=== PATIENT | female | born 1955 | race Caucasian/White ===

== ENCOUNTER 2016-04-05 09:45 | Outpatient (CLI) | payer BC, OTHER | END 2016-04-05 09:46 | disposition home or self-care (01) | LOC: NC 09:45 | PROVIDERS: ATTEND Family Medicine | DX: E11.9 Type 2 diabetes mellitus without complications (principal); Z71.3 Dietary counseling and surveillance; E66.9 Obesity, unspecified; Z68.31 Body mass index [BMI] 31.0-31.9, adult; Z79.84 Long term (current) use of oral hypoglycemic drugs ==

== ENCOUNTER 2016-06-15 08:53 | Outpatient (CLI) | payer BC, OTHER | END 2016-06-15 08:54 | disposition home or self-care (01) | LOC: NC 08:53 | PROVIDERS: ATTEND Family Medicine | DX: E11.9 Type 2 diabetes mellitus without complications (principal); Z71.3 Dietary counseling and surveillance; Z68.31 Body mass index [BMI] 31.0-31.9, adult; I10 Essential (primary) hypertension; Z79.84 Long term (current) use of oral hypoglycemic drugs ==

== ENCOUNTER 2016-06-22 09:08 | Outpatient (CLI) | payer BC, OTHER | END 2016-06-22 09:09 | disposition home or self-care (01) | LOC: NC 09:08 | PROVIDERS: ATTEND Family Medicine | DX: E11.9 Type 2 diabetes mellitus without complications (principal); Z71.3 Dietary counseling and surveillance; Z68.31 Body mass index [BMI] 31.0-31.9, adult; I10 Essential (primary) hypertension; Z79.84 Long term (current) use of oral hypoglycemic drugs ==

== ENCOUNTER 2016-06-29 09:10 | Outpatient (CLI) | payer BC, OTHER | END 2016-06-29 09:11 | disposition home or self-care (01) | LOC: NC 09:10 | PROVIDERS: ATTEND Family Medicine | DX: E11.9 Type 2 diabetes mellitus without complications (principal); Z71.3 Dietary counseling and surveillance; E66.9 Obesity, unspecified; Z68.31 Body mass index [BMI] 31.0-31.9, adult; I10 Essential (primary) hypertension; Z79.84 Long term (current) use of oral hypoglycemic drugs ==

== ENCOUNTER 2016-07-08 09:18 | Day surgery (SDC) | payer BC, OTHER ==
[2016-07-08] MEDS ORDERED: IV START KIT ONE (09:35)
[2016-07-08] MEDS ORDERED: LACTATED RINGERS 1,000 ML ONE (09:35)
[2016-07-08] MEDS ORDERED: ONDANSETRON 4 MG/2ML 2 ML VIAL IV PRN (09:40)
[2016-07-08] MEDS ORDERED: LIDOCAINE 1% 2 ML VIAL ID PRN (09:40)
[2016-07-08] MEDS ORDERED: SODIUM CHLORIDE 0.9% 1,000 ML IV SCH (09:40)
[2016-07-08] MEDS ORDERED: SODIUM CHLORIDE 0.9% 1,000 ML ONE (09:44)
[2016-07-08] MEDS ORDERED: PROPOFOL 60 ML IV ONE (11:41)
--- NOTE | 2016-07-12 15:02 | SURGPATH ---
[facility] [address] [place] [id number] Patient Name: ARNEL KING MR#: [id number] : 1955 Gender: F Specimen #: [id number] Collected: 07/08/2016 Received: 07/09/2016 Reported: 07/12/2016 Submitting Phys: RUTH HOYT Copy To Phys: [facility] MIGUEL ANGEL AVELAR Clinical History / Pre-Operative Diagnosis: SCREENING Specimen Source / Surgical Procedure Performed: SPLENIC FLEXURE POLYP Interpretation: COLON, SPLENIC FLEXURE, BIOPSY: - HYPERPLASTIC POLYP Electronically Signed Out Alice Amaya M.D. Gross Description: The specimen is received in a formalin filled container labeled with the patient's name and "splenic flexure biopsy". A single chapman biopsy is 0.4 x 0.4 x 0.3 cm. Totally embedded in one cassette. Mario Koenig PDennys Microscopic Description: On deeper levels, sections show minimal hyperplastic change with papillary luminal tufting without basolateral branching or widening of the base of the crypts. No dysplasia is seen. 1: 50821 K63.89
== END 2016-07-08 12:15 | disposition home or self-care (01) ==
LOC: SDC 09:18
PROVIDERS: ATTEND Surgery
PROC: 0DBL8ZX Excision of Transverse Colon, Via Natural or Artificial Opening Endoscopic, Diagnostic (ICD-10-PCS; principal; 2016-07-08)
DX: Z12.11 Encounter for screening for malignant neoplasm of colon (principal); K63.5 Polyp of colon; I10 Essential (primary) hypertension; D11.9 Benign neoplasm of major salivary gland, unspecified
CPT/HCPCS: 45380; J7120; J7030

== ENCOUNTER 2016-07-13 09:00 | Outpatient (CLI) | payer BC, OTHER | END 2016-07-13 09:01 | disposition home or self-care (01) | LOC: NC 09:00 | PROVIDERS: ATTEND Family Medicine | DX: E11.9 Type 2 diabetes mellitus without complications (principal); Z71.3 Dietary counseling and surveillance; Z68.31 Body mass index [BMI] 31.0-31.9, adult; I10 Essential (primary) hypertension; Z79.84 Long term (current) use of oral hypoglycemic drugs ==